=== PATIENT | female | born 1960 | race Hispanic/Latino ===

== ENCOUNTER 2019-04-11 12:14 | Emergency (ER) | payer SELFPAY ==
[2019-04-11 13:14] VITALS: BP 166/99
--- NOTE | 2019-04-11 13:14 | Event Note ---
ED Screening Note Date of service: 04/11/19 Time: 13:11 ED Screening Note: 58 y/o female c/o right flank and abd pain since Wednesday. This initial assessment/diagnostic orders/clinical plan/treatment(s) is/are subject to change based on patients health status, clinical progression and re-assessment by fellow clinical providers in the ED. Further treatment and workup at subsequent clinical providers discretion. Patient/guardian urged not to elope from the ED as their condition may be serious if not clinically assessed and managed. Initial orders include: ua, CT abd/pelvic
[2019-04-11 14:08] LABS: Hematocrit 42.2 % (30.3-42.9); Hemoglobin 14.9 gm/dl (10.1-14.3); Mean Corpuscular HGB Conc 35 % (30-34); Mean Corpuscular Volume 107 fl (79-97); Platelet Count 173 K/mm3 (140-440); Red Blood Count 3.96 M/mm3 (3.65-5.03); Red Cell Distribution Width 13.5 % (13.2-15.2)
[2019-04-11 14:25] LABS: Alanine Aminotransferase 10 units/L (7-56); Albumin 4.2 g/dL (3.9-5); BUN/Creatinine Ratio 27; Blood Urea Nitrogen 19 mg/dL (7-17); Calcium 9.3 mg/dL (8.4-10.2); Hemolysis Index 7
--- NOTE | 2019-04-11 14:40 | Emergency Department Report ---
ED Abdominal Pain HPI - General Chief Complaint: Abdominal Pain Stated Complaint: POSS KIDNEYSTONE Time Seen by Provider: 04/11/19 13:50 Source: patient Mode of arrival: Ambulatory Limitations: No Limitations - History of Present Illness Initial Comments: Patient is a 58-year-old female who comes to the ER today complaining of right right flank pain for several days. She's had no fever. No nausea vomiting. Patient states her past medical history is positive for hypertension. She did have a kidney stone 30 years ago. Patient has done nothing to make her pain better or worse prior to arrival in the ER. She states that she has had some hematuria, dysuria and frequency. - Related Data Previous Rx's Medication Instructions Recorded Last Taken Type Sulfamethoxazole/Trimethoprim 1 each PO BID #6 tablet 04/11/19 Unknown Rx [Bactrim DS TAB] Tamsulosin [Flomax] 0.4 mg PO QDAY #10 cap 04/11/19 Unknown Rx traMADol [Ultram] 50 mg PO Q6HR PRN #10 tablet 04/11/19 Unknown Rx Allergies Allergy/AdvReac Type Severity Reaction Status Date / Time No Known Allergies Allergy Unverified 04/11/19 12:15 ED Review of Systems ROS: Stated complaint: POSS KIDNEYSTONE Other details as noted in HPI Comment: All other systems reviewed and negative ED Past Medical Hx - Past Medical History Previous Medical History?: Yes Hx Hypertension: Yes Hx Kidney Stones: Yes - Surgical History Past Surgical History?: Yes Additional Surgical History: back surgery as a child - Social History Smoking Status: Never Smoker Substance Use Type: None - Medications Home Medications: Home Medications Medication Instructions Recorded Confirmed Last Taken Type Sulfamethoxazole/Trimethoprim 1 each PO BID #6 tablet 04/11/19 Unknown Rx [Bactrim DS TAB] Tamsulosin [Flomax] 0.4 mg PO QDAY #10 cap 04/11/19 Unknown Rx traMADol [Ultram] 50 mg PO Q6HR PRN #10 tablet 04/11/19 Unknown Rx ED Physical Exam - General Limitations: No Limitations General appearance: alert - Head Head exam: Present: normocephalic - Eye Eye exam: Present: normal appearance - ENT ENT exam: Present: mucous membranes moist - Neck Neck exam: Present: normal inspection - Respiratory Respiratory exam: Present: normal lung sounds bilaterally - Cardiovascular Cardiovascular Exam: Present: regular rate - GI/Abdominal GI/Abdominal exam: Present: soft, normal bowel sounds - Rectal Rectal exam: Present: deferred - Extremities Exam Extremities exam: Present: normal inspection, full ROM - Back Exam Back exam: Present: normal inspection, full ROM. Absent: CVA tenderness (R), CVA tenderness (L) - Neurological Exam Neurological exam: Present: alert, oriented X3, CN II-XII intact, normal gait - Psychiatric Psychiatric exam: Present: normal affect, normal mood ED Course Vital Signs 04/11/19 13:10 Temperature 97.9 F Pulse Rate 107 H Respiratory 13 Rate Blood Pressure 166/99 [Left] O2 Sat by Pulse 96 Oximetry ED Medical Decision Making - Lab Data Result diagrams: 04/11/19 13:58 04/11/19 13:58 - Medical Decision Making Labs 04/11/19 04/11/19 04/11/19 13:58 13:58 14:30 WBC 8.7 RBC 3.96 Hgb 14.9 H Hct 42.2 MCV 107 H MCH 38 H MCHC 35 H RDW 13.5 Plt Count 173 Sodium 139 Potassium 4.1 Chloride 102.4 Carbon Dioxide 24 Anion Gap 17 BUN 19 H Creatinine 0.7 Estimated GFR > 60 BUN/Creatinine Ratio 27 Glucose 131 H Calcium 9.3 Total Bilirubin 0.50 AST 12 ALT 10 Alkaline Phosphatase 79 Total Protein 8.0 Albumin 4.2 Albumin/Globulin Ratio 1.1 Lipase 39 Urine Color Yellow Urine Turbidity Hazy Urine pH 5.0 Ur Specific [place] 1.018 Urine Protein <15 mg/dl Urine Glucose (UA) Neg Urine Ketones Neg Urine Blood Neg Urine Nitrite Neg Urine Bilirubin Neg Urine Urobilinogen < 2.0 Ur Leukocyte Esterase Tr Urine WBC (Auto) 2.0 Urine RBC (Auto) 1.0 U Epithel Cells (Auto) 7.0 Urine Mucus Few Vital Signs 04/11/19 13:10 Temperature 97.9 F Pulse Rate 107 H Respiratory 13 Rate Blood Pressure 166/99 [Left] O2 Sat by Pulse 96 Oximetry LABS AND UA NOTED MEDICATED IN ER WITH SOME RELIEF DC HOME WITH DC PLAN OF CARE AND URO FOLLOW UP. ON DC HR 90BPM ON PROVIDER EXAM. Critical care attestation.: If time is entered above; I have spent that time in minutes in the direct care of this critically ill patient, excluding procedure time. ED Disposition Clinical Impression: Flank pain, Dysuria Disposition: DC-01 TO HOME OR SELFCARE Is pt being admited?: No Does the pt Need Aspirin: No Condition: Stable Instructions: Flank Pain (ED) Additional Instructions: DIET TOLERATED MEDS ORDERED TODAY IN ER FOLLOW INSTRUCTIONS ON THE BOTTLE FOLLOW UP PCP WITHIN 48 HOURS TO ENSURE YOU ARE GETTING BETTER ACTIVITY TOLERATED MOTRIN OR TYLENOL FOR PAIN OR FEVER RETURN TO THE ER FOR WORSENING SYMPTOMS NOT RELIEVED BY YOUR MEDICATIONS. Prescriptions: Sulfamethoxazole/Trimethoprim [Bactrim DS TAB] 1 each PO BID #6 tablet Tamsulosin [Flomax] 0.4 mg PO QDAY #10 cap traMADol [Ultram] 50 mg PO Q6HR PRN #10 tablet PRN Reason: Pain Referrals: JACQUELINE WITT MD [Staff Physician] - 3-5 Days Forms: Work/School Release Form(ED) Time of Disposition: 15:01
[2019-04-11 14:51] LABS: Bilirubin,Urine NEG (Negative); Blood,Urine NEG (Negative); Color,Urine Yellow (Yellow); Mucus,Urine FEW /HPF; Protein,Urine <15 mg/dL mg/dL (Negative); Urobilinogen,Urine < 2.0 mg/dL (<2.0)
[2019-04-11] MEDS ORDERED: NORCO 5/325 PO ONE (15:00)
[2019-04-11] MEDS ORDERED: BACTRIM DS PO ONE (15:00)
== END 2019-04-11 15:17 | disposition home or self-care (01) ==
LOC: ED 12:14
DX: R10.9 Unspecified abdominal pain (principal); R30.0 Dysuria; I10 Essential (primary) hypertension; Z79.899 Other long term (current) drug therapy; Z87.442 Personal history of urinary calculi
CPT/HCPCS: 36415; 80053; 81001; 83690; 85027; 99283